=== PATIENT | male | born 1960 | race Caucasian/White ===

== ENCOUNTER 2017-11-04 14:23 | Emergency (ER) | payer MEDICAID, SELFPAY ==
[2017-11-04 14:24] VITALS: BP 148/72; PULSE 70; RESP 14; TEMP 36.1; O2SAT 97; BMI 28.6
--- NOTE | 2017-11-04 14:37 | RAD_ITS ---
STUDY: X-RAY - CERVICAL SPINE REASON FOR EXAM: Male, 57 years old. Right-sided posterior neck pain and radiation in the right upper extremity. TECHNIQUE: 5 view(s) of the cervical spine were obtained. COMPARISON: None FINDINGS: Normal anterior atlantoaxial articulation. Normal odontoid process. The patient is status post anterior fusion at the C3-C4 and C4-C5 levels. The patient status post laminectomy and posterior fusion at the C3-C4, C4-C5, C5-C6 and C7-T1 levels. Prominent anterior spondylosis at the C2-C3 level. There are atherosclerotic vascular calcifications of the carotid arteries. RAD/Cerv Spine 2 or 3 Views IMPRESSION: Multilevel anterior and posterior fusion and laminectomy. Electronically Signed: Angel Brito MD at 15:10 EST Tel [phone], Service support ,
--- NOTE | 2017-11-04 14:40 | ED.DCSUM_ITS ---
- ER Visit Summary Date of Service: 11/04/17 Chief Complaint: Neck pain History of Present Illness: The patient is a 57 M who presents with neck pain. It started yesterday. He was lifting car parts and felt a pop in his neck. He is concerned because he has had multiple spinal fusions of his neck. Is worse with movement. He tried his home tramadol and naproxen but it did not help. He called his surgeon and he could not get him into later on this month. Has any numbness or tingling. No loss of function of his arms or legs. Physical Examination: Vital signs are reviewed. HEENT exam unremarkable. Heart is regular rate and rhythm without murmurs. Lungs are clear to auscultation. Abdomen is soft and nontender. Neck exam reveals diffuse cervical spine tenderness to palpation. Old scars are noted. His neurologic exam is normal. Test Results: Cervical spine x-ray reveals postsurgical changes without any acute findings Emergency Department Course and Treatment: Patient will be treated with [place] here. He has tramadol to take at home. He will follow-up in 9 days with his cervical spine surgeon Treatment Plan: [] Disposition: Discharge Impression: Neck pain This note was generated with [employer] dictation software. It may contain incorrect words, spelling, and punctuation that were not noted in review of the chart prior to signing ED Disposition - Plan for ED Patient: Chief Complaint: Back Referrals: Angelina Sweeney MD [Primary Care Provider] -
[2017-11-04] MEDS: HYDROcodone Bitartrate/Apap 5/325 Tablet PO (15:12)
--- NOTE | 2017-11-04 15:14 | ED.DEP ---
ED Disposition - Plan for ED Patient: Disposition: Home or Assisted Living Chief Complaint: Back Instructions: ED Neck Back Pain General Referrals: Angelina Sweeney MD [Primary Care Provider] -
[2017-11-04 15:18] VITALS: PULSE 74; RESP 18; O2SAT 96
== END 2017-11-04 15:18 | disposition home or self-care (01) ==
PROVIDERS: Emergency Provider Emergency Medicine; Family Provider Family Medicine; PCP Family Medicine
DX: M54.2 Cervicalgia (principal); I25.10 Atherosclerotic heart disease of native coronary artery without angina pectoris; I10 Essential (primary) hypertension; J44.9 Chronic obstructive pulmonary disease, unspecified; Z72.0 Tobacco use
CPT/HCPCS: 72040; 99283

== ENCOUNTER → 2018-11-04 10:16 | Outpatient (CLI) | payer MEDICAID, SELFPAY ==
--- NOTE | 2018-11-04 10:18 | RAD_ITS ---
STUDY: X-RAY - CERVICAL SPINE REASON FOR EXAM: Male, 58 years old. Chronic neck pain TECHNIQUE: 4 view(s) of the cervical spine were obtained. COMPARISON: None FINDINGS: There is normal alignment and curvature of the cervical spine with anterior discectomy and fusion at C3-C4, C4-C5. Plates and transpedicular screws are also seen from C3 to T1 with no transpedicular screws in C6. The metallic hardware is in good position. The prevertebral soft tissues are normal.. RAD/Cerv Spine 4 or 5 Views IMPRESSION: Anterior discectomies and fusion at C3-C4 and C4-C5 Posterior approach neck surgery extending from C3 to T1 Electronically Signed: Sree Barton MD at 5:44 EST Tel , Service support ,
== END ==
PROVIDERS: Family Provider Family Medicine; PCP Family Medicine; Referring Provider Orthopaedic Surgery; Visit Provider Orthopaedic Surgery
DX: M54.2 Cervicalgia (principal)
CPT/HCPCS: 72050

== ENCOUNTER → 2018-11-25 12:03 | Outpatient (CLI) | payer MEDICAID, SELFPAY ==
--- NOTE | 2018-11-25 12:00 | RAD_ITS ---
STUDY: X-RAY - ORBITS REASON FOR EXAM: Male, 58 years old. This study is being performed as a clearance examination for exclusion of orbital metal, prior to the performance of an MRI examination. TECHNIQUE: Upward and downward gaze frontal view(s) of the orbits were obtained. COMPARISON: None. FINDINGS: Normal bilateral orbits without a metallic orbital foreign body. Normal visualized facial bones. There may be mild mucoperiosteal thickening in the maxillary antra. The soft tissue structures are unremarkable. RAD/Orbits for Foreign Body IMPRESSION: No demonstrated metallic orbital foreign body. The patient is cleared for an MRI examination. Electronically Signed: Chas Russell MD at 14:09 EST , Service support ,
--- NOTE | 2018-11-25 12:04 | MRI_ITS ---
STUDY: MRI CERVICAL SPINE WITHOUT CONTRAST REASON FOR EXAM: Male, 58 years old. Neck pain and right shoulder pain with tingling in left hand TECHNIQUE: Standardized fat and water weighted pulse sequences were obtained in the sagittal and axial planes. COMPARISON: None FINDINGS: Normal foramen magnum and brainstem-cervical cord junction. Normal craniovertebral junction. Normal anterior atlantoaxial articulation. Normal odontoid process. Normal cervical lordosis. Normal vertebral bodies and posterior osseous elements. C2-3: Normal endplates. Normal disc height, signal and small left paracentral disc protrusion.. Normal central canal and intervertebral neural foramina. C3-4: Status post posterior and anterior fusion.. Normal central canal. Moderate left neuroforaminal stenosis secondary to bony hypertrophy C4-5: Status post posterior and anterior fusion.. Normal central canal . Moderate to severe right neuroforaminal stenosis secondary to bony hypertrophy. C5-6: Status post posterior fusion.. Normal central canal. Severe right neuroforaminal stenosis and mild to moderate narrowing on the left secondary to bony hypertrophy. C6-7: Status post posterior fusion Normal endplates. Normal disc height, signal and morphology. Normal central canal . Moderate bilateral neuroforaminal stenosis secondary to bony hypertrophy C7-T1: Status post posterior fusion. Normal endplates. Normal disc height, signal and morphology. Normal central canal and intervertebral neural foramina. Normal cervical cord. Normal visualized soft tissue structures. MRI/Spine Cervical (Routine) IMPRESSION: No evidence for acute fracture or subluxation. Multilevel postsurgical changes.. Multilevel neuroforaminal stenosis secondary to bony hypertrophy. Findings as above Electronically Signed: Caesar Patel MD at 23:33 EST , Service support ,
== END ==
PROVIDERS: Family Provider Family Medicine; PCP Family Medicine; Referring Provider Orthopaedic Surgery; Visit Provider Orthopaedic Surgery
DX: M79.601 Pain in right arm (principal)
CPT/HCPCS: 70030; 72141

== ENCOUNTER → 2019-01-22 13:23 | Outpatient (CLI) | payer MEDICAID, SELFPAY ==
--- NOTE | 2019-01-22 13:24 | RAD_ITS ---
STUDY: X-RAY - RIGHT SHOULDER REASON FOR EXAM: Pain for 10 years, no specific injury. TECHNIQUE: 4 view(s) of the shoulder. COMPARISON: None. FINDINGS: Normal glenohumeral articulation. There is mild acromioclavicular arthrosis. Normal acromion. Normal humeral head and visualized proximal humerus. The soft tissue structures are unremarkable. There are chronic healed rib fractures. RAD/Shoulder min 2 Views IMPRESSION: Mild acromioclavicular arthrosis. Electronically Signed: Dale Matos MD at 15:07 EDT Tel , Service support ,
== END ==
PROVIDERS: Family Provider Family Medicine; PCP Family Medicine; Referring Provider Orthopaedic Surgery; Visit Provider Orthopaedic Surgery
DX: M25.511 Pain in right shoulder (principal)
CPT/HCPCS: 73030

== ENCOUNTER → 2019-05-16 07:54 | Outpatient (CLI) | payer MEDICAID, SELFPAY ==
[2019-05-07 11:32] VITALS: BMI 28.6
--- NOTE | 2019-05-16 07:55 | MRI_ITS ---
HISTORY: Right shoulder pain. 3 neck surgeries. Neck is always an pain after last surgery in December 1991. Unable to sleep on right side. Subacromial impingement of the right shoulder. Impingement syndrome of the right shoulder. M 75.21. M 75.41 EXAMINATION: MR Shoulder W/O Contrast TECHNIQUE: Multiplanar and multisequence MR images of the right shoulder. IV Contrast dosage and agent: None. COMPARISON: Right shoulder x-rays are available from January 22, 2019. 163 images FINDINGS: BONE: Arthritis with edema is present at the acromioclavicular joint. The bones are hyperostotic with osteophytes. The humeral head is slightly elevated within the glenoid fossa. Marrow signal to the proximal humerus and glenoid is normal ACROMIOCLAVICULAR JOINT: Arthritic with marrow edema SUBACROMIAL-SUBDELTOID SPACE: A tiny sliver of bursal fluid is present. This extends down lateral to the humeral head, deep to the deltoid, inferior to the insertion of the rotator cuff GLENOHUMERAL JOINT: The articular cartilage is thinned on both the humerus and the glenoid a small elbow effusion is present trace edema is present within the rotator cuff anterior interval ROTATOR CUFF: Superficial surface rim rent incomplete thickness tear is present at the insertion of the supraspinatus. Some intrasubstance rim rent tear in is also present more medially within the subscapularis insertion on the lateral aspect of the humeral head posteriorly. Tendinosis with an intrasubstance tear at the musculotendinous junction is present anteriorly within the subscapularis with additional thickening and edema to the subscapularis tendon as it courses anterior to the humeral head, medial to the bicipital groove there is mild atrophy to the supraspinatus peripherally in the subacromial space. There is mild atrophy to the origin of the musculotendinous fibers to the infraspinatus as well. LABRUM: Medial and inferior to the glenoid labrum there is a complex 7 mm cyst. This suggests an anterior inferior labral tear. BICEPS TENDON: There is some thickening and edema of the long head of the biceps tendon as it courses through the anterior interval with some continued thickening and edema as it courses into the bicipital groove. Although there is fluid surrounding the tendon within the bicipital groove, the tendon itself appears normal. OTHER SOFT TISSUES: The anterior inferior margin of the synovium of the glenohumeral joint is normal at 5 mm. The coracohumeral ligament, series 6 image 9, is normal MRI/Upper Ext Joint Only(Routine) IMPRESSION: Acromioclavicular arthritis with subacromial bursitis. Glenohumeral arthritis. Tiny rim rent tears to the supraspinatus and infraspinatus. Mild tendinosis to the long head of the biceps tendon and the supraspinatus. at 0021 Reported and signed by: Lon Wilson MD Electronically Signed: Lon Wilson MD at 0:20 EDT Tel , Service support ,
== END ==
PROVIDERS: Family Provider Family Medicine; PCP Family Medicine; Referring Provider Orthopaedic Surgery; Visit Provider Orthopaedic Surgery
DX: M75.21 Bicipital tendinitis, right shoulder (principal); M75.41 Impingement syndrome of right shoulder
CPT/HCPCS: 73221

== ENCOUNTER 2019-09-09 05:36 | Day surgery (SDC) | payer MEDICAID, SELFPAY ==
[2019-08-11 13:53] VITALS: BMI 29.7
--- NOTE | 2019-09-01 01:36 | HP_ITS ---
I have re-examined the patient. There are no clinical changes since date of exam. Intake Vital Signs 08/11/19 Body Mass Index (BMI) 29.7 Intake Visit Reasons: Right Shoulder Allergies No Known Allergies Allergy (Verified 11/04/18 09:55) [facility] Medical History (Updated 06/04/19 @ 22:46 by Alan Wen DO) COPD (chronic obstructive pulmonary disease) (Chronic) Surgical History (Updated 11/04/18 @ 10:41 by Mimi Johnson) H/O heart artery stent (Acute) h/o multiple cervical spine surgery (Acute) Family History (Updated 11/04/18 @ 09:59 by Mimi Johnson) Father Cancer Social History (Updated 09/01/19 @ 13:36 by Beryl Gonzalez DO) Smoking Status: Current every day smoker HPI Right Shoulder: Surgical H&P: Yes Details: Parts of this documentation were recorded by a scribe, this documentation accurately reflects the service provided and the decisions made by me, Beryl Gonzalez DO 08/11/19 1352. LIAT LEE is a 59 year old M here today for F/U on right shoulder after MRI. Patient contineus to have anterior shoulder pain and pain along his collar bone. Has had injections in the past. Denies numbness, tingling or other associated symptoms. Denies any changes in his pain or medications. ROS Musc Reports joint pain, Reports joint swelling, Denies numbness, Reports radiating pain into limb, Reports stiffness, Denies tingling Skin/Breast Denies redness, Denies lesions, Denies itching, Denies rash Neuro No numbness, No tingling Ortho Exam Right Shoulder Testing: Positive Hawkin's; negative AROM-Forward Elevation 0-180 Pain with active range of motion tenderness along his biceps positive speeds positive Yergason's positive impingement No rales rhonchi wheezing, no abdominal pain, no audible bruits Assessment & Plan Problems 1. Bursitis of right shoulder M75.51 2. Subacromial impingement of right shoulder M75.41 3. Nontraumatic incomplete tear of right rotator cuff M75.111 Plan Personally reviewed the MRI and explained that he has bursitis, bicep tendonitis, small tear in supraspintus. Due to him needing to alter his ADLs we will proceed with surgery. Instructed to cut down on smoking. Reviewed the pre-operative plans with the patient. Risks and benefits of the procedure were fully explained, including but not limited to infection, neurovascular injury, continued pain, arthritis, stiffness, need for further surgery, re-injury, DVT, PE, general risks of anesthesia, and loss of limb or life. The patient understands all the risks and does wish to proceed with written consent. Follow up post op or sooner if pain, swelling, numbness or associated symptoms, or concerns develop. All questions answered. Patient in agreement of plan. Coding Level of Care Code Off vis,est,level 4 Diagnoses Bursitis of right shoulder M75.51 Subacromial impingement of right shoulder M75.41 Nontraumatic incomplete tear of right rotator cuff M75.111 ??Rotator cuff tear extent: incomplete ??Rotator cuff tear trauma status: nontraumatic 09/01/19 1336 <Electronically signed by Beryl gonzalez DO> Date _ Beryl Gonzalez DO
[2019-09-09] VITALS (7 sets, daily range): BP systolic 119–171; BP diastolic 63–91; PULSE 65–76; RESP 14–20; TEMP 35.9–36.8; O2SAT 92–97; BMI 31.1
[2019-09-09 06:10] LABS: Hematocrit 41.1 % (40-54); Hemoglobin 12.8 g/dL (13.0-16.5); Mean Corp Hgb Conc 31.1 g/dL (32-36); Mean Corpuscular Hgb 28.6 pg (27.0-32.0); Mean Corpuscular Volume 91.7 fL (80-94); Mean Platelet Vol. 10.1 fl (6.2-12.0); Platelet Count 296 K/mm3 (150-450); RBC Distribution Width CV 14.8 % (11.6-14.6); RBC Distribution Width SD 49.8 fl (35.1-43.9); Red Blood Count 4.48 M/mm3 (4.6-6.2); White Blood Count 8.1 K/mm3 (4.4-11.0)
[2019-09-09] MEDS: Lactated Ringers 1,000 ML 100 ML IV ×2 (06:55→09:00)
[2019-09-09] MEDS: Cefazolin 2 GM in 0.9% Normal Saline 100 ML IV (07:25)
[2019-09-09] MEDS: Epinephrine (1 mg/ml) 1 MG/ML VIAL ×2 (08:04)
--- NOTE | 2019-09-09 09:32 | PCM.DC.ORTHO ---
Discharge Diet: No Restrictions - sling at all times unless in shower, may remove dressings and apply bandaids to incision after pod 4 and get incision wet at that time, call with concerns Discharge Activity: May Not Drive May shower in (days): 1 Ice area for (Minutes): 20 - Every hour while awake. Weight Bearing Status: Weight bearing as tolerated Keep extremity elevated above heart level: Operative Extremity Call your doctor if your incision/area has: Continuous Slow Oozing, Sudden Increased Bleeding, Increased Pain/ Swelling, Increased Redness, Foul Smelling Discharge Call your doctor if you observe: Fever of 101 or Higher, Coldness, Increased Pain, Numbness or Tingling, Change in Color, Calf discomfort Allergies/Adverse Reactions: Allergies acetaminophen [From Tylenol] Adverse Reaction (Verified 09/02/19 13:41) Other CAUSES DREAMS Medications to take at Discharge Gabapentin [Neurontin] 300 mg PO Q4H 11/19/16 Pantoprazole Sodium [Protonix] 20 mg PO BID 11/19/16 lisinopril 5 mg tablet 20 mg PO DAILY tab 11/04/18 nitroglycerin 0.4 mg sublingual tablet 0.4 mg SUBLINGUAL Q5-15M PRN 11/04/18 atorvastatin 80 mg tablet 80 mg PO DAILY 01/13/19 clopidogrel 75 mg tablet 75 mg PO DAILY 01/13/19 ipratropium-albuterol 0.5 mg-3 mg(2.5 mg base)/3 mL nebulization soln 3 ml INHALATION Q8H 01/13/19 sertraline 50 mg tablet 50 mg PO DAILY 01/13/19 tiotropium bromide 2.5 mcg/actuation mist for inhalation 2 puff INHALATION DAILY 01/13/19 tramadol 50 mg tablet 50 mg PO Q8H PRN 01/13/19 Albuterol Sulfate [Proair Respiclick] 90 mcg IH DAILY 09/02/19 Lidocaine 3 gm TP PRN PRN 09/02/19 Aspirin [Aspirin, Baby] 81 mg PO DAILY 09/09/19 Oxycodone HCl/Acetaminophen [Percocet 5/325] 1 - 2 tablet PO Q6H PRN PRN 5 Days #28 tablet 09/09/19 Zolpidem Tartrate [Ambien (Generic)] 5 mg PO QHS PRN PRN #14 tablet 09/09/19 The following prescriptions were given: Zolpidem Tartrate [Ambien (Generic)] 5 mg PO QHS PRN PRN #14 tablet PRN Reason: Insomnia Transmission Status: Sent to [facility] Oxycodone HCl/Acetaminophen [Percocet 5/325] 1 - 2 tablet PO Q6H PRN PRN 5 Days #28 tablet PRN Reason: Pain Transmission Status: Sent to [facility] Primary Care Physician: Pilo Conklin NP-C [Primary Care Provider] - Test Results: Test results from this visit will be discussed in further detail at your follow-up appointment, if applicable. Please Follow Up With: Beryl Gonzalez, - [phone]
--- NOTE | 2019-09-09 09:35 | OP.PCM_ITS ---
Report of Operation Date of Procedure: 09/09/19 Pre-Operative Diagnosis: right shoulder rotator cuff tear, subacromial imp ingement, biceps tendinosis/ labral tear Surgery/Procedure Performed:: sars, subscap and supraspinatus repair, sad/acromioplasty, biceps tenotomy history professor: Manish Riojas Type of Anesthesia:: General Anesthesiologist: Alan Delong Specimen's removed: none Estimated Blood Loss (mL): min Fluids Replaced: 1100cc lr Description of Procedure: Preoperative note Patient is 59-year-old male well-known to me in clinic. Patient has consists continued right shoulder pain recalcitrant to conservative treatment options. MRI confirms rotator cuff tear as well as a biceps tendinosis. Risk benefits an d alternatives surgery discussed with patient. Risk including but not limited to blood loss, blood clot, infection, neurovascular, failure procedure, loss of life and loss of limb. Patient is aware would like proceed with right shoulder arthroscopy repair as indicated we did discuss the option of biceps tenotomy versus tenodesis. Patient would like to use his elbow as much as possible postoperatively and with so we will most likely do a biceps tenotomy. Operative note Patient seen and examined preop holding area. Right shoulder was marked. Patient brought to the operating room placed supine on the operating table. Signed, anesthesia, antibiotics administered. Right arm was prepped and draped in usual sterile fashion with SCDs placed on his bilateral lower extremity all bony prominences well-padded. Again the right arm was prepped and draped in beachchair positioning long term through beachchair position we did recheck his blood pressure which is stable throughout. We then marked out our bony landmarks for portal placement. We insufflated the glenohumeral joint for the posterior aspect and had good return. Timeout was performed. We then used an 11 blade to create a posterior portal. Begin a diagnostic arthroscopy. The glenohumeral joint was intact. The labrum was torn off of the anterior leading edge of the biceps was also torn off of the superior aspect we then created an anterior portal under direct visualization. There was extensive synovitis and rotator cuff fraying on the undersurface was gently debrided back. After this was gently debrided back we did note the full-thickness rotator cuff tear at the leading edge. The biceps was brought into the joint further with the shaver and noted to also have extreme redness as well as as it was unstable at its labral anchor this was transected with a combination of a basket and a burner. We then used a shaver to gently debride back the insertion for the no impingement loose pieces. We will then palpate the visualize the tear which was a mid body split of the subscapularis which was the level of the lesser tuberosity was then gently debrided back with a combination of shaver and a bur to good bony bed we then placed 2 link suture and placed him into a post proximal push lock into the lesser tuberosity and had good fit footprint coverage at that point. We then moved to the subacromial space. We created a lateral portal under direct visualization resected back to quite thickened bursa which was thickened and most posteriorly as well as laterally we then able to visualize the rotator cuff we had marked intra-articularly the rotator cuff supraspinatus tear we found this and then were able to gently debride back notes it was a full-thickness tear and there is only a few fibers attached laterally we then placed fiber tape and a mattress configuration in place a down to a swivel lock laterally on the lateral row and in standard technique. We had good footprint coverage at that point. We irrigated the shoulder with copious amounts of sterile saline. The portals were closed with interrupted 4-0 nylon stitches sterile dressings were applied and a sling was applied. Patient taught procedure well no complication transferred recovery room in stable condition where he received a postop regional interscalene block. Postoperative note Pharmacy has prescriptions Nonweightbearing right upper extremity Follow-up in 2 weeks Call with increased pain numbness tingling further issues arise There is no family present we will give patient pictures at 2-week postop visit Juan Ramon disclaimer Juan Ramon disclaimer Juan Ramon disclaimer
[2019-09-09] MEDS: Mupirocin Ointment 22gm Tube 1 APPLIC (09:40)
[2019-09-09] MEDS: HYDROcodone Bitartrate/Apap 5/325 Tablet PO (11:01)
== END 2019-09-09 11:50 | disposition home or self-care (01) ==
LOC: SDC 05:36 → AC 05:38
PROVIDERS: Anesthesiology; Family Provider Nurse Practitioner Primary Care; PCP Nurse Practitioner Primary Care; Referring Provider Orthopaedic Surgery; Visit Provider Orthopaedic Surgery
PROC: (CPT 29827; principal; 2019-09-09 07:10)
DX: M75.51 Bursitis of right shoulder (principal); M75.111 Incomplete rotator cuff tear or rupture of right shoulder, not specified as traumatic; M75.41 Impingement syndrome of right shoulder; M75.21 Bicipital tendinitis, right shoulder; E78.00 Pure hypercholesterolemia, unspecified; J45.909 Unspecified asthma, uncomplicated; K21.9 Gastro-esophageal reflux disease without esophagitis; F17.200 Nicotine dependence, unspecified, uncomplicated; Z79.02 Long term (current) use of antithrombotics/antiplatelets; Z79.82 Long term (current) use of aspirin; Z79.899 Other long term (current) drug therapy; Z95.5 Presence of coronary angioplasty implant and graft
CPT/HCPCS: 01630; 29826; 29827; 64415; 36415; 85027; J7120; J2405

== ENCOUNTER → 2019-11-19 12:43 | Outpatient (CLI) | payer MEDICAID, SELFPAY ==
[2019-11-19 12:34] VITALS: BMI 31.1
--- NOTE | 2019-11-19 12:44 | RAD_ITS ---
STUDY: X-RAY - RIGHT SHOULDER REASON FOR EXAM: Pain, recent injury and recent surgery. TECHNIQUE: 3 view(s) of the shoulder. COMPARISON: Radiographs 01/22/2019. FINDINGS: Normal glenohumeral articulation. There is acromioclavicular arthrosis. Normal acromion. There is an anchor in the humeral head. The soft tissue structures are unremarkable. There are chronic healed right rib fractures. RAD/Shoulder min 2 Views IMPRESSION: Acromioclavicular arthrosis. Electronically Signed: Dale Matos MD at 15:30 EST Tel , Service support ,
== END ==
PROVIDERS: PCP Nurse Practitioner Primary Care; Referring Provider Orthopaedic Surgery; Visit Provider Orthopaedic Surgery
DX: M25.511 Pain in right shoulder (principal)
CPT/HCPCS: 73030

== ENCOUNTER → 2025-08-06 | Outpatient (CLI) | payer MEDICARE, MEDICAID, SELFPAY | END | disposition home or self-care (01) | LOC: PSN 06:47 | PROVIDERS: PCP Nurse Practitioner Primary Care; Referring Provider Nurse Practitioner Primary Care; Visit Provider Nurse Practitioner Primary Care | DX: J44.9 Chronic obstructive pulmonary disease, unspecified (principal) | CPT/HCPCS: 94060; 94729 ==